=== PATIENT | male | born 1970 | race Caucasian/White ===

== ENCOUNTER 2017-02-01 23:06 | Emergency (ER) | payer BC ==
[2017-02-01 23:12] VITALS: BP 188/75; BMI 43.0
[2017-02-01] MEDS ORDERED: TETRACAINE HCL AFFEYE ONE (23:59)
--- NOTE | 2017-02-02 | DR.GENAD ---
HPI - PCP Primary Care Physician: NFD - Complaint/Symptoms Chief Complaint:: PT C/O RT PAIN SINCE LAST WEEK FROM CUTTING [place] PT STATES" I THINK I GOT SOMETHING IN MY RIGHT EYE AND IT'S CAUSING ME TOO HAVE A REAL BAD HEADACHE" - Nurses notes reviewed Nurses Notes Review: Yes - Source History Provided: Patient - Mode of Arrival Mode of Arrival: Ambulatory - Timing Onset of Chief Complaint: 01/25/17 Came on: Gradually - Duration How lon Duration: Days - Location Location: right eye - Severity Severity: Moderate - Modifying Factors Worsens:: eye movement - Associated Signs and Symptoms Associated Signs and Symptoms: headache PMH - PMH Past Medical History: No Past Medical History: Hypertension Past Surgical History: Yes Surgical History: Abdominal Surgery, Ortho Surgery Past Surgical History Comment: NECK - Family History History of Family Medical Conditions: Yes Family Medical History: Diabetes Mellitus, Cancer, Hypertension - Social History Does any household member use tobacco: No Do you use any recreational Drugs:: No Lives With: Family Lives Where: Home - infectious screening In the last 2 months have you had wt loss of >10#?: NO Have you had fever, night sweats or hemotysis?: No Have you traveled outside the country in the last 6 months?: No Isolation: Standard ROS - Review of Systems Constitutional: No Symptoms Reported Eyes: Eye Pain ENTM: No Symptoms Reported Respiratoy: No Symptoms Reported Cardiovascular: No Symptoms Reported Gastrointestinal/Abdominal: No Symptoms Reported Genitourinary: No Symptoms Reported Neurological: Headache Musculoskeletal: No Symptoms Reported Integumentary: No Symptoms Reported Hematologic/Lymphatic: No Symptoms Reported Endocrine: No Symptoms Reported Psychiatric: No Symptoms Reported All Other Systems: Reviewed and Negative PE - Vital Signs Vitals: Temperature 98.9 F Pulse Rate 74 Respiratory Rate 18 Blood Pressure [Right Arm] 134/82 Blood Pressure [Left Arm] 123/57 Blood Pressure 188/75 O2 Sat by Pulse Oximetry 100 - General Limitations: No Limitations General Appearance: Alert, In No Apparent Distress - Head Head Exam: Normal Inspection - Eyes Eye exam: Normal Appearance, EOMI, Conjunctival Injection, Other (uv light exam done with stain. abrasion present). negative: Scleral Icterus - ENT ENT Exam: Normal Exam, Normal Oropharynx - Neck Neck Exam: Normal Inspection, Full ROM, Trachea Midline - Respiratory Respiratory Exam: negative: Accessory Muscle Use, Respiratory Distress - Extremities Extremities Exam: Normal Inspection, Full ROM - Neurologic Neurological Exam: Alert, Oriented X3, CN II-XII Intact - Psychiatric Psychiatric Exam: Flat Affect - Skin Skin Exam: Intact, Normal Color - Diagnosis Discharge Problem: Corneal abrasion, right Qualifiers: Encounter type: initial encounter Qualified Code(s): S05.01XA - Injury of conjunctiva and corneal abrasion without foreign body, right eye, initial encounter - Discharge Plan Condition: Stable Prescriptions: [id number] (Ophth) [CORTISPORIN (ophth) EYE DROPS SUSP *] 2 drop RIGHTEYE Q4H #5 btl - Follow ups/Referrals Follow ups/Referrals: NFD,None [Primary Care Provider] - 3 days - Instructions
[2017-02-02] MEDS ORDERED: FUL-GLO STRIP RIGHTEYE ONE (00:03)
[2017-02-02] MEDS ORDERED: TETRACAINE HCL ONE (00:18)
[2017-02-02] MEDS ORDERED: FUL-GLO STRIP ONE (00:19)
[2017-02-02] MEDS ORDERED: ULTRAM PO ONE (00:29)
[2017-02-02] MEDS ORDERED: ULTRAM ONE (00:35)
[2017-02-02] MEDS ORDERED: GENTAMICIN SULF (OPHTH) ONE (00:50)
[2017-02-02] MEDS ORDERED: GENTAK OPHTH OINT AFFEYE ONE (00:53)
[2017-02-02] MEDS ORDERED: CORTISPORIN OPHTH SUSP RIGHTEYE SCH (01:00)
== END 2017-02-02 01:05 | disposition home or self-care (01) ==
LOC: ER 23:06
DX: S05.01XA Injury of conjunctiva and corneal abrasion without foreign body, right eye, initial encounter (principal); Y33.XXXA Other specified events, undetermined intent, initial encounter; Y92.9 Unspecified place or not applicable
CPT/HCPCS: 99282

== ENCOUNTER → 2017-06-23 | Outpatient (CLI) | payer BC ==
[2017-06-09 18:45] VITALS: BP 163/102
[2017-06-23 09:39] LABS: BASOPHILS # (AUTO) 0.1 X10^3/uL (0.0-0.1); BASOPHILS % (AUTO) 1.2 % (0.2-1.0); EOSINOPHILS # (AUTO) 0.4 x10^3/uL (0.0-0.2); EOSINOPHILS % (AUTO) 6.1 % (0.9-2.9); HEMATOCRIT 41.6 % (42.0-54.0); HEMOGLOBIN 14.2 g/dL (13.5-18.0); LYMPHOCYTES # (AUTO) 2.5 X10^3/uL (1.3-2.9); MEAN CORPUSCULAR HEMOGLOBIN 28.7 pg (27.0-34.0); MEAN CORPUSCULAR HGB CONC 34.1 g/dL (33.0-35.0); MEAN CORPUSCULAR VOLUME 84.3 fL (80.0-100.0); MEAN PLATELET VOLUME 8.4 fL (7.4-11.0); MONOCYTES # (AUTO) 0.6 x10^3/uL (0.3-0.8); MONOCYTES % (AUTO) 8.9 % (0.0-13.0); NEUTROPHILS % (AUTO) 45.8 % (42.0-75.0); PLATELET COUNT 409 X10^3/uL (150.0-450.0); RED BLOOD COUNT 4.94 X10^6/uL (4.7-6.0); RED CELL DISTRIBUTION WIDTH 13.7 % (11.6-16.5); WHITE BLOOD COUNT 6.7 X10^3/uL (3.6-10.0)
[2017-06-23 09:57] LABS: ALANINE AMINOTRANSFERASE 43 Units/L (12-78); ALKALINE PHOSPHATASE 121 Units/L (46-116); ASPARTATE AMINO TRANSFERASE 29 Units/L (15-37); BLOOD UREA NITROGEN 18 mg/dL (7-18); CALCIUM 9.7 mg/dL (8.5-10.1); CARBON DIOXIDE 33.5 mmol/L (21-32); CHLORIDE 97 mmol/L (98-107); CHOL/HDL RATIO 3.6 (0.0-5.0); CHOLESTEROL 174 mg/dL (0-200); CREATININE 1.23 mg/dL (0.70-1.30); HDL CHOLESTEROL 49 mg/dL (40-60); SODIUM 127 mmol/L (136-145); TOTAL PROTEIN 8.9 g/dL (6.4-8.2); TRIGLYCERIDES 122 mg/dL (0-150); TSH (3RD GENERATION) 3.092 uIU/mL (0.358-3.74); eGFR BLACK RACES > 60 (>60); eGFR NON BLACK RACES > 60 (>60)
== END ==
LOC: LAB 08:54
PROVIDERS: ATTEND Internal Medicine
DX: I10 Essential (primary) hypertension (principal); R53.83 Other fatigue; R68.89 Other general symptoms and signs; E78.5 Hyperlipidemia, unspecified; R16.0 Hepatomegaly, not elsewhere classified; E03.8 Other specified hypothyroidism; E78.4 Other hyperlipidemia
CPT/HCPCS: 36415; 80048; 80061; 80076; 84443; 85025